=== PATIENT | female | born 1945 | race Caucasian/White ===

== ENCOUNTER 2017-09-10 10:37 | Emergency (ER) | payer MEDICARE ==
--- NOTE | 2017-09-10 12:55 | UC ---
Respiratory Complaint HPI - HPI Summary HPI Summary: 71 year old female presents with complains of sinus congestion and cough. - History of Current Complaint Stated Complaint: CONGESTION COUGH Time Seen by Provider: 09/10/17 12:55 Hx Obtained From: Patient Onset/Duration: Sudden Onset Severity Initially: Moderate Severity Currently: Moderate Pain Scale Used: 0-10 Numeric - 0 Character: Cough: Nonproductive - Allergies/Home Medications Allergies/Adverse Reactions: Allergies Allergy/AdvReac Type Severity Reaction Status Date / Time No Known Allergies Allergy Verified 09/10/17 13:07 Home Medications: Home Medications Furosemide TAB* [Lasix TAB*] 1 tab PO DAILY 09/10/17 [History Confirmed 09/10/17 ] PMH/Surg Hx/FS Hx/Imm Hx Previously Healthy: Yes - Surgical History Surgical History: None - Family History Known Family History: Positive: None - Social History Alcohol Use: Occasionally Substance Use Type: None Smoking Status (MU): Never Smoked Tobacco - Immunization History Most Recent Tetanus Shot: WITHIN THE LAST 5 YRS. Review of Systems Constitutional: Negative Skin: Negative Eyes: Negative ENT: Sore Throat, Nasal Discharge, Sinus Congestion, Sinus Pain/Tenderness Respiratory: Negative Cardiovascular: Negative Gastrointestinal: Negative Genitourinary: Negative Motor: Negative Neurovascular: Negative Musculoskeletal: Negative Neurological: Negative Psychological: Negative All Other Systems Reviewed And Are Negative: Yes Physical Exam Triage Information Reviewed: Yes Vital Signs Reviewed: Yes Eye Exam: Normal ENT: Positive: Pharyngeal erythema, Nasal congestion, Nasal drainage, Sinus tenderness Dental Exam: Normal Neck exam: Normal Neck: Positive: 1 Respiratory Exam: Normal Cardiovascular Exam: Normal Abdominal Exam: Normal Musculoskeletal Exam: Normal Neurological Exam: Normal Psychological Exam: Normal Skin Exam: Normal Respiratory Course/Dx - Differential Dx/Diagnosis Provider Diagnoses: sinusitis Discharge - Discharge Plan Condition: Stable Disposition: HOME Prescriptions: Azithromyxin FIOR (NF) [Z-Fior (Zithromax) 250 mg tabs #6] 2 tab PO .TODAY, THEN 1 DAILY #6 tab Benzonatate CAP* [Tessalon 100 MG CAP*] 100 mg PO TID PRN #30 cap PRN Reason: Cough Guaifenesin-Codeine [Cheratussin AC] 1 teasp PO Q8H PRN #120 ml MDD 15 ml PRN Reason: Cough LoraTADine TAB(NF) [Claritin 10 MG TAB(NF)] 10 mg PO DAILY #30 tab Patient Education Materials: Sinusitis (ED) Referrals: Ulisses Booth DO [Primary Care Provider] -
[2017-09-10 13:07] VITALS: BP 116/79
== END 2017-09-10 13:26 | disposition home or self-care (01) ==
LOC: UCCORT 10:37
DX: J32.9 Chronic sinusitis, unspecified (principal)
CPT/HCPCS: 99212; G0463